=== PATIENT | male | born 1975 | race Caucasian/White ===

== ENCOUNTER 2020-02-21 21:56 | Emergency (ER) | payer OTHER, SELFPAY ==
[2020-02-21 21:57] VITALS: BP 143/89; PULSE 73; RESP 18; O2SAT 99; BMI 33.9
[2020-02-21] MEDS: ONDANSETRON 4 MG/2 ML INJ IV (22:17)
[2020-02-21] MEDS: MORPHINE 4 MG/ML INJ IV (22:17)
[2020-02-21 22:33] LABS: Add Manual Diff / Slide Review NO; Basophils Absolute Auto 100 /uL (0-100); Basophils Percent Auto 0.7 % (0-2); Eosinophils Absolute Auto 0 /uL (0-450); Eosinophils Percent Auto 0.3 % (2-4); Hematocrit 43.4 % (41-53); Hemoglobin 14.7 g/dL (13.5-17.5); Lymphocytes Absolute Auto 1500 /uL (1100-4500); Lymphocytes Percent Auto 12.2 % (25-40); Mean Corpuscular HGB Conc 33.8 % (30-36); Mean Corpuscular Hemoglobin 28.1 PG (26-34); Mean Corpuscular Volume 83.2 fL (80-100); Monocytes Absolute Auto 800 /uL (0-900); Neutrophils Absolute Auto 10200 /uL (1500-7000); Neutrophils Percent Auto 80.8 % (50-75); Platelet Count 248 X10^3/uL (150-400); Red Blood Cell Count 5.21 X10^6/uL (4.5-5.9); Red Cell Distribution Width 13.3 % (11.6-14.8); White Blood Cell Count 12.6 X10^3/uL (4.5-11.0)
[2020-02-21 22:37] LABS: BUN Creatinine Ratio 14.1 (6-22); Blood Urea Nitrogen 13 mg/dL (9-20); Calcium 9.3 mg/dL (8.4-10.2); Carbon Dioxide 19 mmol/L (22-32); Chloride 106 mmol/L (98-107); Estimated Glomerular Filt Rate > 60.0 mL/min (>60); Glucose 147 mg/dL (70-100); HEMOLYSIS < 15 (0-50); Potassium 3.9 mmol/L (3.4-5.1); Sodium 135 mmol/L (137-145)
--- NOTE | 2020-02-21 22:50 | DI.CT.S_ITS ---
PROCEDURE: CT KIDNEY URETER BLADDER (KUB) INDICATIONS: severe left flank pain, radiation to groin TECHNIQUE: Noncontrast 5 mm thick sections acquired from the diaphragms to the symphysis. 5 mm thick coronal and sagittal reformats were then performed. For radiation dose reduction, the following was used: automated exposure control, adjustment of mA and/or kV according to patient size. COMPARISON: None. FINDINGS: Image quality: Excellent. Lung bases: Lung bases are clear. Heart size is normal. Urinary system: Both kidneys are normal in size. 8 mm proximal left ureteral calculus with moderate left hydronephrosis. Bladder wall thickness is normal; no calcified bladder stones. Other solid organs: Liver is normal in size. Gallbladder is unremarkable . Pancreas is normal in contours. Spleen is normal in size. No adrenal nodules. Peritoneum and bowel: Unenhanced bowel loops demonstrate normal wall thickness and caliber. No free fluid or air. Nodes and vessels: No retroperitoneal or mesenteric adenopathy by size criteria. Aorta and inferior vena cava are normal in caliber. Abdominal wall: Fat containing ventral hernia. Pelvis: No free pelvic fluid. No inguinal hernias or adenopathy. Bones: No suspicious bony lesions. No vertebral body compression fractures. IMPRESSION: 1. 8 mm proximal left ureteral calculus with moderate hydronephrosis. The above findings are concordant with preliminary report. Dictated by: Yamilex Elaine M.D. on 02/22/2020 at 10:58 Approved by: Yamilex Elaine M.D. on 02/22/2020 at 11:03
[2020-02-21] MEDS: SODIUM CHLORIDE 0.9% 1,000 ML 500 ML IV (22:59)
--- NOTE | 2020-02-21 23:56 | PC.NURSE ---
urine sample obtained
[2020-02-22 00:08] LABS: WBC Urine None Seen (0-5/HPF)
--- NOTE | 2020-02-22 00:20 | ED_ITS ---
HPI - Male Genitourinary General Chief complaint: Urogenital-Male Stated complaint: left flank pain Time Seen by Provider: 02/21/20 22:19 Source: patient Mode of arrival: Ambulatory Limitations: no limitations History of Present Illness HPI Narrative: 45-year-old male nonsmoker with noncontributory medical history p resents with his in the chief complaint of sudden onset left flank pain with radiation into his groin that started about 2 hours prior to his arrival. He denies provocation or palliation of his pain. He denies fever or chills but has had some nausea. He denies change in bowel habits. He denies any recent injury. He takes no blood thinners. He denies any history of kidney stones. Onset (ago): hour(s) Duration: intermittent Location: left flank Severity: moderate Relieving factors: none Exacerbating factors: none Associated symptoms: Reports denies other symptoms Related Data Sexually active: Yes Previous Rx's Medication Instructions Recorded hydrocodone-acetaminophen 1 tab PO Q4-6H PRN #10 tab 02/22/20 ondansetron 4 mg PO TID-QID PRN #10 tab 02/22/20 tamsulosin [Flomax] 0.4 mg PO DAILY #10 cap 02/22/20 Allergies Allergy/AdvReac Type Severity Reaction Status Date / Time aspirin [ASPIRIN] Allergy Unknown Unverified 10/22/17 11:54 ibuprofen [IBUPROFEN] Allergy Unknown Unverified 10/22/17 11:54 Review of Systems Constitutional Constitutional: Denies chills, Denies fatigue, Denies fever(s), Denies frequent falls, Denies lethargy and Denies weakness Eyes Eyes: Denies change in vision, Denies eye discharge, Denies irritation and Denies loss of vision ENT Ears, Nose, Mouth, and Throat: Denies change in voice, Denies dizziness, Denies neck pain, Denies sore throat and Denies throat swelling Cardiovascular Cardiovascular: Denies chest pain, Denies irregular heart rhythm, Denies lightheadedness, Denies palpitations, Denies dyspnea, Denies dyspnea on exertion and Denies orthopnea Respiratory Respiratory: Denies cough, Denies dyspnea, Denies dyspnea on exertion and Denies wheezing Gastrointestinal Gastrointestinal: Denies abdominal pain, Denies change in bowel habits, Denies diarrhea, Denies nausea and Denies vomiting Musculoskeletal Musculoskeletal: Denies neck pain and Denies numbness Integumentary/Breasts Skin/Breast: Denies pruritus, Denies erythema, Denies rash and Denies wounds Neurologic Neurologic: Denies behavioral changes, Denies confusion, Denies dizziness, Denies frequent falls, Denies loss of vision, Denies numbness and Denies weakness Psychiatric Psychiatric: Denies anxiety, Denies behavioral changes, Denies confusion, Denies depression, Denies homicidal ideation and Denies suicidal ideation Endocrine Endocrine: Denies fatigue, Denies flushing and Denies palpitations Hematologic/Lymphatic Hematologic/Lymphatic: Denies easy bruising Allergic/Immunologic Allergic/Immunologic: Denies urticaria, Denies throat swelling and Denies wheezing Patient History Social History Smoking Status: Never smoker Smoking Status: Never smoker alcohol intake frequency: 0-2 drinks per day Substance Use Type: does not use Exam Narrative Exam Narrative: GENERAL: [45] year old patient appears stated age. Well- nourished, well-developed patient, in mild distress. HEAD: Atraumatic. Normocephalic. EYES: Pupils equal round and reactive. Extraocular motions intact. No scleral icterus. No injection or drainage. ENT: Nose without bleeding, purulent drainage. Throat without erythema, tonsillar hypertrophy or exudate. Airway patent. NECK: Trachea midline. Non tender CARDIOVASCULAR: Regular rate and rhythm without murmurs, gallops, or rubs. RESPIRATORY: Clear to auscultation. Breath sounds equal bilaterally. No wheezes, rales, or rhonchi. GASTROINTESTINAL: Abdomen soft, non-tender, nondistended. EXTREMITIES: No edema or joint tenderness. BACK: Nontender without deformity or crepitance. No flank tenderness. NEURO: AOx3. SKIN: No rash or erythema of visible areas Initial Vital Signs Initial Vital Signs: Vital Signs Pulse Rate 73 02/21/20 21:57 Respiratory Rate 18 02/21/20 21:57 Blood Pressure 143/89 H 02/21/20 21:57 Pulse Oximetry 99 02/21/20 21:57 Course Course Course Narrative: Near complete resolution of symptoms after above-stated therapies Orders Ordered: ED Orders 02/21/20 22:05 Basic Metabolic Panel Stat Complete Blood Count AUTO DIFF Stat 02/21/20 22:50 CT kidney ureter bladder (KUB) Stat 02/22/20 00:07 Urine Microscopic Stat Discontinued Medications Hydrocodone Bitart/Acetaminophen (Vicodin 5/325 Prepack) 1 bottle MISC SEEINSTR ONE Stop: 02/22/20 00:43 Last Admin: 02/22/20 00:57 Dose: 1 bottle Documented by: KAMRAN Sodium Chloride (Normal Saline 0.9%) 1,000 mls @ 500 mls/hr IV BOLUS ONE Stop: 02/22/20 00:30 Last Admin: 02/21/20 22:59 Dose: 500 mls/hr Documented by: KAMRAN Morphine Sulfate (Morphine) 4 mg IV NOW ONE Stop: 02/21/20 22:16 Last Admin: 02/21/20 22:17 Dose: 4 mg Documented by: DARIEL Ondansetron HCl (Zofran) 4 mg IV NOW ONE Stop: 02/21/20 22:15 Last Admin: 02/21/20 22:17 Dose: 4 mg Documented by: DARIEL Ondansetron HCl (Zofran Odt Prepack) 1 bottle MISC SEEINSTR ONE Stop: 02/22/20 00:43 Last Admin: 02/22/20 00:56 Dose: 1 bottle Documented by: KAMRAN Tamsulosin HCl (Flomax) 0.4 mg PO NOW ONE Stop: 02/22/20 00:43 Last Admin: 02/22/20 00:56 Dose: 0.4 mg Documented by: KAMRAN Vital Signs Vital signs: Vital Signs - 8 hr 02/21/20 21:57 Pulse Rate 73 Respiratory Rate 18 Blood Pressure 143/89 H Pulse Oximetry 99 MDM - Male Genitourinary Lab Data Result diagrams: 02/21/20 22:05 02/21/20 22:05 Labs: Lab Results 02/21/20 02/21/20 02/22/20 Range/Units 22:05 22:05 00:07 WBC 12.6 H (4.5-11.0) X10^3/uL RBC 5.21 (4.5-5.9) X10^6/uL Hgb 14.7 (13.5-17.5) g/dL Hct 43.4 (41-53) % MCV 83.2 (80-100) fL MCH 28.1 (26-34) PG MCHC 33.8 (30-36) % RDW 13.3 (11.6-14.8) % Plt Count 248 (150-400) X10^3/uL Neut % (Auto) 80.8 H (50-75) % Lymph % (Auto) 12.2 L (25-40) % [place] % (Auto) 6.0 (3-14) % Eos % (Auto) 0.3 L (2-4) % Baso % (Auto) 0.7 (0-2) % Neut # (Auto) 58434 H (5629-7204) /uL Lymph # (Auto) 1500 (7947-5797) /uL [place] # (Auto) 800 (0-900) /uL Eos # (Auto) 0 (0-450) /uL Baso # (Auto) 100 (0-100) /uL Sodium 135 L (137-145) mmol/L Potassium 3.9 (3.4-5.1) mmol/L Chloride 106 (98-107) mmol/L Carbon Dioxide 19 L (22-32) mmol/L BUN 13 (9-20) mg/dL Creatinine 0.92 (0.66-1.25) mg/dL Estimated GFR > 60.0 (>60) mL/min BUN/Creatinine Ratio 14.1 (6-22) Glucose 147 H (70-100) mg/dL Calcium 9.3 (8.4-10.2) mg/dL Urine RBC 30-100/hpf H (0-5/HPF) Urine WBC None seen (0-5/HPF) Ur Squamous Epith Cells 0-1 /hpf (0-5/HPF) Urine Bacteria Few (2-10) H (None) Urine Mucus 2+ H (Negative) Ur Culture Indicated? Cult not indicated Urine Dip Bedside Urine Glucose Negative Bedside Urine Bilirubin - Negative Bedside Urine Ketone +++ 80 Urine Specific [place] 1.020 Bedside Urine Occult Blood +++ Bedside Urine pH 6.0 Bedside Urine Protein +/- 15 Bedside Urine Urobilinogen - Negative Bedside Urine Nitrite - Negative Bedside Urine Leukocytes - Negative Esterase Imaging Data CT scan - abdomen/pelvis: Radiologist's Impression: 8x10mm stone in left proximal ureter with mild hydro MDM Narrative Medical decision making narrative: Patient not septic. Pain is well controlled and no sign of renal failure. He is given return precautions and has had questions to his apparent satisfaction Discharge Plan Departure Patient Disposition: Home Clinical Impression: Kidney calculi Discharge Date/Time: 02/22/20 01:04 Instructions: DI for Kidney Stones Activity Restrictions/Additional Instructions: *You have been diagnosed with [large left-sided kidney stone] *What to do: *Take medications as directed *Follow up with Dr. Stern (Urology) call his office in the morning and tell them you were seen in the Emergency Department and we want you seen in follow up *Return to ER if you should have any new, worsening or concerning symptoms Prescriptions: New hydrocodone-acetaminophen 5-325 mg tablet 1 tab PO Q4-6H PRN (Reason: pain) Qty: 10 RF: 0 tamsulosin [Flomax] 0.4 mg capsule 0.4 mg PO DAILY Qty: 10 RF: 0 ondansetron 4 mg tablet,disintegrating 4 mg PO TID-QID PRN (Reason: nausea and vomiting) Qty: 10 RF: 0 Referrals: Abran Stern MD [Physician] -
[2020-02-22 00:30] LABS: Bacteria Urine Few (2-10); Mucus Urine 2+ (Negative); RBC Urine 30-100/HPF (0-5/HPF); Squamous Epithelial Cell Urine 0-1 /HPF (0-5/HPF)
[2020-02-22 00:31] LABS: Culture Indicated Urine Cult Not Indicated
[2020-02-22] MEDS: ONDANSETRON 4 MG ODT PREPACK 1 BOTTLE MISC (00:56)
[2020-02-22] MEDS: TAMSULOSIN 0.4 MG CAPSULE PO (00:56)
[2020-02-22] MEDS: HYDROCODONE/ACET 5/325 PREPACK 1 BOTTLE MISC (00:57)
== END 2020-02-22 01:04 | disposition home or self-care (01) ==
PROVIDERS: Emergency Provider Emergency Medicine; Family Provider Family Medicine
DX: N20.0 Calculus of kidney (principal)
CPT/HCPCS: 74176; 80048; 81003; 81015; 85025; 96374; 96375; 99284; J2270; J2405

== ENCOUNTER → 2020-02-23 14:05 | Outpatient (CLI) | payer OTHER, SELFPAY ==
[2020-02-24 13:15] LABS: COVID19 Sendout Not Detected (Not Detect)
== END ==
PROVIDERS: Family Provider Family Medicine; Visit Provider Nurse Practitioner
DX: Z11.59 Encounter for screening for other viral diseases (principal); N23 Unspecified renal colic; N20.1 Calculus of ureter; Z84.1 Family history of disorders of kidney and ureter
CPT/HCPCS: 81002; 87635

== ENCOUNTER 2020-02-25 14:42 | Day surgery (SDC) | payer OTHER, SELFPAY ==
--- NOTE | 2020-02-25 08:22 | SUR.OPER ---
Lithotomy on padded OR bed, head on pillow, arms secured on padded arm boards at <90 degrees abduction. Legs secured in padded yellow fins stirrups.
[2020-02-25 15:17] VITALS: BP 144/91; PULSE 65; RESP 16; TEMP 37.2; O2SAT 97; BMI 33.9
[2020-02-25] MEDS: LACTATED RINGERS 1,000 ML 42 ML IV (15:20)
--- NOTE | 2020-02-25 15:21 | PM.PREOP ---
Pre-operative Note Interval Note History & Physical reviewed/Exam performed by Physician: Yes Changes to H&P: No
--- NOTE | 2020-02-25 16:12 | SUR.OPER ---
Lithotomy on padded OR bed, head on pillow, arms secured on padded arm boards at <90 degrees abduction. Legs secured in padded yellow fins stirrups. On ESWL hammock table.
--- NOTE | 2020-02-25 16:43 | PM.OP.1 ---
Operative Date/Time/Diagnoses Date of procedure: 02/25/20 Time of procedure: 16:43 Pre-op diagnosis: Obstructing 8 x 11 mm left proximal ureteral calculus Post-op diagnosis: same Procedure & Clinicians Procedure: Left extracorporeal shockwave lithotripsy (maximal power level 7.0 x 2500 shocks). Same procedure as scheduled: Yes Indications: Obstructing 8 x 11 mm left proximal ureteral calculus Left renal colic Surgeon: Abran Stern Click Yes if Unassisted: Yes Anesthesia Type: General Operative Notes Findings: Left proximal ureteral calculus as depicted on preoperative imaging. Closure Type: not applicable Specimen(s): none sent Estimated Blood Loss (mL): 0 Blood products transfused: none Tourniquet time (min): 0 Procedure in detail: Patient was positioned supine and was administered general anesthesia. The above index calculus was localized in the X, Y, and Z plane. Lithotripsy was then commenced at minimal power level for 200 shocks. A 2 minutes pause was then conducted. Lithotripsy was then resumed and the power level was gradually increased to a maximum of 7.0. The stone and its fragments were localized numerous times throughout the case as indicated. At the conclusion of the case there was excellent evidence of stone fragmentation. The patient was then awakened, transferred to [place], and transferred to recovery room. Complications: none Post-operative Condition: stable Disposition: PACU Plan for aftercare: Home
[2020-02-25 16:47] VITALS: BP 129/93; PULSE 69; RESP 16; TEMP 36.7; O2SAT 93
[2020-02-25 16:53] VITALS: BP 123/84; PULSE 69; RESP 12; O2SAT 93
[2020-02-25 16:56] VITALS: BP 139/87; PULSE 68; RESP 12; O2SAT 95
[2020-02-25] MEDS: FUROSEMIDE 40 MG/4 ML VIAL 20 MG IV (17:06)
[2020-02-25 17:07] VITALS: BP 130/85; PULSE 60; RESP 17; TEMP 36.9; O2SAT 98
== END 2020-02-25 17:25 | disposition home or self-care (01) ==
PROVIDERS: Family Provider Family Medicine; PCP Family Medicine; Referring Provider Family Medicine; Visit Provider Specialist
PROC: (CPT 50590; principal; 2020-02-25 15:45)
DX: N20.1 Calculus of ureter (principal); N23 Unspecified renal colic; J45.909 Unspecified asthma, uncomplicated
CPT/HCPCS: 50590; J1940; J2250; J2405; J2704; J3010

== ENCOUNTER → 2020-02-28 08:21 | Outpatient (CLI) | payer OTHER, SELFPAY ==
--- NOTE | 2020-02-28 08:22 | DI.RAD.S_ITS ---
PROCEDURE: XR KUB INDICATIONS: kidney stone TECHNIQUE: One view of the abdomen acquired. COMPARISON: [facility], CT, CT KIDNEY URETER BLADDER (KUB), 02/21/2020, 23:37. FINDINGS: Surgical changes and devices: None. Bowel: Bowel gas pattern is normal. Soft tissues: No suspicious abdominal calcifications on the right but on the left in the area just below where the calculus tight dental rayo by CT scanning 02/21/20 was present there is an ovoid calcification superimposed on the left lateral transverse process of L3, with a craniocaudad height of approximately 8 mm and an estimated transverse dimension of 5 mm . Visualized solid organ contours appear normal in size. Bones: No suspicious bony lesions. IMPRESSION: Retained ureteral calculus fragment approximately at the L3 transverse by this process level. Findings discussed with Dr. Stern. Dictated by: John Rangel M.D. on 02/28/2020 at 8:53 Approved by: John Rangel M.D. on 02/28/2020 at 9:05
== END ==
PROVIDERS: Family Provider Family Medicine; PCP Family Medicine; Referring Provider Specialist; Visit Provider Specialist
DX: N20.1 Calculus of ureter (principal)
CPT/HCPCS: 74018

== ENCOUNTER 2020-02-28 09:19 | Day surgery (SDC) | payer OTHER, SELFPAY ==
[2020-02-28] VITALS (7 sets, daily range): BP systolic 124–147; BP diastolic 82–93; PULSE 60–76; RESP 15–17; TEMP 36.1–36.4; O2SAT 93–95; BMI 33.9
[2020-02-28] MEDS: HYDROMORPHONE 1 MG INJ IV (09:47)
[2020-02-28] MEDS: LACTATED RINGERS 500 ML 25 ML IV (09:49)
[2020-02-28 10:22] LABS: COVID19 -Nasal RAPID Negative (Negative)
[2020-02-28] MEDS: ONDANSETRON 4 MG/2 ML INJ IV (10:54)
[2020-02-28] MEDS: LACTATED RINGERS 1,000 ML 42 ML IV ×2 (11:50→12:52)
--- NOTE | 2020-02-28 12:06 | PM.PREOP ---
Pre-operative Note COVID-19 COVID-19 status: Negative Result date/Date tested (Pos, Neg/Pending): 02/28/20 Interval Note History & Physical reviewed/Exam performed by Physician: Yes Changes to H&P: Yes H&P completed within 30 days and has changed as indicated here:: The patient underwent uncomplicated left extracorporeal shockwave lithotripsy for an obstructing 8 x 11 mm left proximal ureteral calculus on 02/25/2020. He states that he had passed gravel the following day and then by yesterday saw no further fragments and began having throbbing left flank pain. KUB film today demonstrates treatment effect of the index calculus and reduced volume, but continued significant stone burden just a bit more distal than original position. Discussion informed consent obtained for cystoscopy and placement of left ureteral stent.
[2020-02-28] MEDS: CEFAZOLIN VIAL 3 GM in SODIUM CHLORIDE 0.9% 100 ML 200 ML IV (12:15)
--- NOTE | 2020-02-28 12:38 | SUR.OPER ---
Lithotomy on padded OR bed, head on pillow, arms secured on padded arm boards at <90 degrees abduction. Legs secured in padded yellow fins stirrups.
--- NOTE | 2020-02-28 12:52 | P.OP_ITS ---
Operative Date/Time/Diagnoses Date of procedure: 02/28/20 Time of procedure: 12:52 Pre-op diagnosis: Obstructing left ureteral calculi Post-op diagnosis: same Procedure & Clinicians Procedure: Cystoscopy and placement left ureteral stent (8 Turkmen by 22-32 cm) Same procedure as scheduled: Yes Indications: Obstructing left proximal ureteral calculus status post left extracorporeal shockwave lithotripsy 02/25/2020 Surgeon: Abran Stern Click Yes if Unassisted: Yes Anesthesia Type: General Operative Notes Findings: Fragmented calculus as depicted in KUB 02/28/2020 Closure Type: not applicable Specimen(s): none sent Applied: other (Eight Turkmen by 22-32 cm multi-length stent.) Estimated Blood Loss (mL): 0 Blood products transfused: none Tourniquet time (min): 0 Procedure in detail: The patient was positioned supine and was administered general anesthesia. He was then repositioned semi lithotomy the lower abdomen genitalia and groin were then prepped and draped in sterile fashion. The 22 Julian nch panendoscope was then passed in the lower urinary tract with the findings as described above. A 0.35 guidewire was then advanced through the working channel of the scope and then advanced in the left upper collecting system under direct and fluoroscopic guidance. Over this a 8 Turkmen by 22-32 cm multi-length stent was selected and advanced over the wire, again over direct and fluoroscopic gu idance. A RETRIEVAL LINE WAS LEFT ATTACHED. The bladder was then drained completely and all instrumentation was removed. The patient was then repositioned in supine, awakened, and transferred to [facility] in stable condition. Complications: none Post-operative Condition: stable Disposition: PACU Plan for aftercare: Discharge home
[2020-03-10 11:22] LABS: Stone Analysis Source URINARY TRACT
[2020-03-10 11:23] LABS: Ca oxalate monohydr 100%
== END 2020-02-28 13:49 | disposition home or self-care (01) ==
PROVIDERS: Family Provider Family Medicine; PCP Family Medicine; Referring Provider Family Medicine; Visit Provider Specialist
PROC: (CPT 52332; principal; 2020-02-28 11:45)
DX: N20.1 Calculus of ureter (principal); J45.909 Unspecified asthma, uncomplicated; Z11.59 Encounter for screening for other viral diseases
CPT/HCPCS: 52332; 82365; 87635; J0690; J1100; J1170; J2405; J2704; J3010

== ENCOUNTER → 2020-03-01 12:37 | Outpatient (CLI) | payer OTHER, SELFPAY ==
[2020-03-01 13:46] LABS: Appearance Urine UA SL CLOUDY; Bilirubin Urine UA NEGATIVE (NEGATIVE); Color Urine UA ORANGE; Glucose Urine UA NEGATIVE (Negative); Ketones Urine UA NEGATIVE (NEGATIVE); Leukocyte Esterase Urine UA 2+ (NEGATIVE); Nitrite Urine UA NEGATIVE (Negative); Occult Blood Urine UA 3+ (Negative); Protein Urine UA 1+ (Negative)
[2020-03-01 13:50] LABS: RBC Urine 30-100/HPF (0-5/HPF)
[2020-03-01 13:51] LABS: Bacteria Urine Moderate (10-30); Culture Indicated Urine Specimen Cultured; Squamous Epithelial Cell Urine 0-1 /HPF (0-5/HPF); WBC Urine 5-10/HPF (0-5/HPF)
== END ==
PROVIDERS: Family Provider Family Medicine; PCP Student in an Organized Health Care Education/Training Program; Referring Provider Specialist; Visit Provider Specialist
DX: N39.0 Urinary tract infection, site not specified (principal)
CPT/HCPCS: 81003; 81015; 87086

== ENCOUNTER → 2020-03-09 10:22 | Outpatient (CLI) | payer OTHER, SELFPAY ==
--- NOTE | 2020-03-09 10:23 | DI.RAD.S_ITS ---
PROCEDURE: XR KUB INDICATIONS: kidney stone TECHNIQUE: One view of the abdomen acquired. COMPARISON: [facility], CT, CT KIDNEY URETER BLADDER (KUB), 02/21/2020, 23:37. [facility], CR, XR KUB, 02/28/2020, 8:18. FINDINGS: Surgical changes and devices: A double pigtail left-sided ureteral stent has been placed with its upper and lower coils in expected position. The stent crosses the proximal ureter which contains a previously identified calculus seen also by CT scanning 02/21/20. This calculus appears to have been displaced cephalad to a small degree in relationship to the prior plain film imaging 02/28/20.. Bowel: Bowel gas pattern is normal. Soft tissues: No suspicious abdominal calcifications. Visualized solid organ contours appear normal in size. Bones: No suspicious bony lesions. IMPRESSION: Expected positioning of left ureteral stent with the calculus previously identified having been deviated cephalad from prior position, but still within the proximal ureter on the left. Dictated by: John Rangel M.D. on 03/09/2020 at 12:19 Approved by: John Rangel M.D. on 03/09/2020 at 12:21
== END ==
PROVIDERS: Family Provider Family Medicine; PCP Student in an Organized Health Care Education/Training Program; Referring Provider Specialist; Visit Provider Specialist
DX: N20.0 Calculus of kidney (principal); Z96.0 Presence of urogenital implants
CPT/HCPCS: 74018

== ENCOUNTER → 2020-03-09 14:37 | Outpatient (CLI) | payer OTHER, SELFPAY ==
[2020-03-09 15:51] LABS: COVID19 -Nasal RAPID Negative (Negative)
== END ==
PROVIDERS: Family Provider Family Medicine; PCP Student in an Organized Health Care Education/Training Program; Visit Provider Nurse Practitioner
DX: Z11.59 Encounter for screening for other viral diseases (principal)
CPT/HCPCS: 87635

== ENCOUNTER 2020-03-10 09:01 | Day surgery (SDC) | payer OTHER, SELFPAY ==
[2020-03-10] VITALS (7 sets, daily range): BP systolic 99–138; BP diastolic 62–87; PULSE 60–72; RESP 10–20; TEMP 36.3–37.1; O2SAT 94–97; BMI 33.6
[2020-03-10] MEDS: LACTATED RINGERS 1,000 ML 42 ML IV ×2 (09:24→10:40)
--- NOTE | 2020-03-10 09:40 | PM.PREOP ---
Pre-operative Note COVID-19 COVID-19 status: Negative Result date/Date tested (Pos, Neg/Pending): 03/09/20 Interval Note History & Physical reviewed/Exam performed by Physician: Yes Changes to H&P: Yes H&P completed within 30 days and has changed as indicated here:: In the interval the patient has undergone uncomplicated left ESWL. Post treatment KUB to picks a residual 6 mm fragment line along the left ureteral stent in same positions original stone. It also to picks at least 3 additional fragments measuring 3 or prepped 4 mm that have migrated retrograde and now reside within the lower pole collecting system left kidney. The rationale and indications for 2nd stage ESWL were discussed with the patient and review of common side effects, possible complications, perioperative limitations/restrictions, and reasonable expectations L comes the recovery following second-stage left ESWL and possible cystoscopy and left stent removal. He wishes to proceed.
[2020-03-10] MEDS: CEFAZOLIN VIAL 3 GM in SODIUM CHLORIDE 0.9% 100 ML 200 ML IV (10:02)
--- NOTE | 2020-03-10 10:18 | SUR.OPER ---
Supine on padded ESWL sling table, head on pillow, arms padded at <90 degrees abduction, legs uncrossed,
--- NOTE | 2020-03-10 11:20 | P.OP_ITS ---
Operative Date/Time/Diagnoses Date of procedure: 03/10/20 Time of procedure: 11:21 Pre-op diagnosis: 1. Left ureteral and renal calculi. 2. Retained left ureteral stent. Post-op diagnosis: same Procedure & Clinicians Procedure: 1. 2nd stage left extracorporeal shockwave lithotripsy (maximal power level 8.5 x 2500 shocks to proximal left ureteral calculus and maximal power level 7.5 x 2000 shocks 2 left lower pole renal calculi). Same procedure as scheduled: Yes Indications: 1. Left proximal ureteral and left renal calculus fragments. 2. Retained left ureteral stent. Surgeon: Abran Stern Click Yes if Unassisted: Yes Anesthesia Type: General Operative Notes Findings: The index left proximal ureteral calculus fragment and left lower pole renal calculus fragments were identified and unchanged in position in comparison to the preoperative imaging. Closure Type: not applicable Estimated Blood Loss (mL): 0 Blood products transfused: none Tourniquet time (min): 0 Procedure in detail: Patient was positioned supine and was administered general anesthesia. The above-described left proximal ureteral calculus was then localized in the X, Y, and Z plane. Lithotripsy was then commenced at minimal power level and gradually increased to maximum of 8.5. Stone was pre localized as indicated throughout treatment with periodic fluoroscopy. At a power level of 8.5 and a maximum of 2500 shocks there was only mild radiographic evidence of treatment effect. Next, the above-described left lower pole cluster of calculus fragments were then localized x, y and Z plane. Lithotripsy was then commenced at minimal power level for total of 200 shocks. A 2 minutes pause was then conducted. Lithotripsy was then resumed and power level was increased to maximum of 7.5. A total of 2000 shocks were delivered to the calculus cluster. There was good evidence of radiographic comminution and further treatment was discontinued. The patient was then awakened transferred to [facility] and transferred recovery in stable condition. Complications: none Post-operative Condition: stable Disposition: PACU Plan for aftercare: Discharge home
--- NOTE | 2020-03-10 11:31 | SUR.PHASEI ---
Assumed care from ALEX Baltazar. Pt assisted to r side, Dr. Avila asked about IV Lasix, order coming. Pt. awake and taking ice chips.
[2020-03-10] MEDS: FUROSEMIDE 40 MG/4 ML VIAL 20 MG IV (11:44)
--- NOTE | 2020-03-10 11:46 | SUR.PHASEI ---
Laisix given pt to [facility] Stable.
--- NOTE | 2020-03-10 12:18 | SUR.PHASEII ---
1200 Voided without difficulty, no clots. Denies pain or nausea. Pleasant or stable. No questions or concerns since he has been through this two other times.
== END 2020-03-10 12:11 | disposition home or self-care (01) ==
PROVIDERS: Family Provider Family Medicine; PCP Student in an Organized Health Care Education/Training Program; Referring Provider Student in an Organized Health Care Education/Training Program; Visit Provider Specialist
PROC: (CPT 50590; principal; 2020-03-10 10:45)
DX: N20.1 Calculus of ureter (principal); N20.0 Calculus of kidney; Z84.1 Family history of disorders of kidney and ureter; E66.9 Obesity, unspecified; J45.909 Unspecified asthma, uncomplicated
CPT/HCPCS: 50590; J0690; J1100; J1940; J2405; J3010

== ENCOUNTER → 2020-04-03 11:11 | Outpatient (CLI) | payer OTHER, SELFPAY ==
--- NOTE | 2020-04-03 11:12 | DI.RAD.S_ITS ---
PROCEDURE: XR KUB INDICATIONS: ureteral calculus TECHNIQUE: One view of the abdomen acquired. COMPARISON: [facility], , XR KUB, 03/09/2020, 10:36. FINDINGS: Surgical changes and devices: Left ureterovesicular stent is unchanged. Bowel: Bowel gas pattern is normal. Soft tissues: No suspicious abdominal calcifications. Visualized solid organ contours appear normal in size. Previous left ureteral calculus is not visualized. Bones: No suspicious bony lesions. IMPRESSION: Left ureterovesicular stent with nonvisualization of previous ureteral calculus. Dictated by: Yamilex Elaine M.D. on 04/03/2020 at 12:32 Approved by: Yamilex Elaine M.D. on 04/03/2020 at 12:33
== END ==
PROVIDERS: Family Provider Family Medicine; PCP Student in an Organized Health Care Education/Training Program; Referring Provider Specialist; Visit Provider Specialist
DX: N20.1 Calculus of ureter (principal); Z96.0 Presence of urogenital implants
CPT/HCPCS: 74018

== ENCOUNTER → 2020-04-05 15:57 | Outpatient (CLI) | payer OTHER, SELFPAY | PROVIDERS: Family Provider Family Medicine; PCP Student in an Organized Health Care Education/Training Program; Visit Provider Specialist | DX: N39.0 Urinary tract infection, site not specified (principal); N20.1 Calculus of ureter; Z96.0 Presence of urogenital implants; Z87.442 Personal history of urinary calculi; Z84.1 Family history of disorders of kidney and ureter | CPT/HCPCS: 52310; 81002; 87077; 87086; 87186 ==

== ENCOUNTER → 2020-07-27 15:10 | Outpatient (CLI) | payer OTHER, SELFPAY ==
--- NOTE | 2020-07-27 15:13 | DI.RAD.S_ITS ---
PROCEDURE: XR KUB INDICATIONS: kidney stones TECHNIQUE: One view of the abdomen acquired. COMPARISON: [facility], CR, XR KUB, 04/03/2020, 11:07. FINDINGS: Surgical changes and devices: Left ureteral stent has been removed. Bowel: Bowel gas pattern is normal. Soft tissues: No suspicious abdominal calcifications. Visualized solid organ contours appear normal in size. Vascular calcifications indicate atherosclerosis. Bones: No suspicious bony lesions. IMPRESSION: Removal of left ureteral stent and no definitive visualized radiopaque renal, ureteral or bladder calculi. Dictated by: Supa Alex [facility] Interpreted: John Rangel MD on 07/27/2020 at 17:02 Approved by: John Rangel M.D. on 07/31/2020 at 16:36
[2020-07-27 16:47] LABS: Uric Acid 5.2 mg/dL (3.5-8.5)
[2020-07-28 06:43] LABS: Parathyroid Hormone Int 53 pg/mL (15-65)
== END ==
PROVIDERS: PCP Student in an Organized Health Care Education/Training Program; Referring Provider Specialist; Visit Provider Specialist
DX: N20.0 Calculus of kidney (principal)
CPT/HCPCS: 36415; 74018; 82310; 83970; 84550

== ENCOUNTER → 2020-08-03 12:06 | Outpatient (CLI) | payer OTHER, SELFPAY ==
[2020-08-22 12:42] LABS: Stone Analysis Source URINARY TRACT
== END ==
PROVIDERS: PCP Student in an Organized Health Care Education/Training Program; Visit Provider Specialist
DX: N20.0 Calculus of kidney (principal); N39.0 Urinary tract infection, site not specified; Z84.1 Family history of disorders of kidney and ureter; Z68.33 Body mass index [BMI] 33.0-33.9, adult
CPT/HCPCS: 81002; 82365